=== PATIENT | female | born 1970 | race Caucasian/White ===

== ENCOUNTER 2018-02-22 00:20 | Emergency (ER) | payer OTHER | END 2018-02-22 03:30 | disposition home or self-care (01) | LOC: ERS 00:20 | DX: H43.811 Vitreous degeneration, right eye (principal); Z79.899 Other long term (current) drug therapy | CPT/HCPCS: 99283 ==

== ENCOUNTER 2018-06-24 09:46 | Emergency (ER) | payer OTHER ==
[2018-06-24 10:42] LABS: #Eosinphils 0.3 thou/uL (0.0-0.7); #Lymphocytes 0.8 thou/uL (1.20-3.40); #Monocytes 0.7 thou/uL (0.11-0.59); #Neutrophils 14.4 thou/uL (1.40-6.50); %Basophils 0.2 % (0.0-1.0); %Lymphocytes 4.9 % (21.0-51.0); %Neutrophils 88.8 % (42.0-75.0); Hemoglobin 16.3 g/dL (12.0-16.0); Mean Corpuscular HGB CONC 33.7 g/dL (32.0-36.0); Mean Corpuscular Hemoglobin 29.3 pg (27.0-31.0); Mean Corpuscular Volume 86.8 fL (78.0-98.0); Mean Platelet Volume 7.3 fL (7.4-10.4); Platelet Count 342 thou/uL (130-400); Red Blood Cell (RBC) Count 5.57 mill/uL (4.20-5.40); White Blood Cell (WBC) Count 16.2 thou/uL (4.8-10.8)
--- NOTE | 2018-06-24 10:53 | RAD ---
CHEST 1 VIEW: Date: 06/24/18 HISTORY: 48-year-old female with history of abdominal discomfort, with nausea and vomiting. Chest pain. COMPARISON: 10/23/16. FINDINGS: Heart size is within normal limits. The lungs are clear. There is a somewhat nodular focus over the l eft lower chest, which I favor to be a nipple shadow. IMPRESSION: 1. Nodular area overlying the left lower chest, evidence for nipple shadow. Consideration for a foll ow-up chest with nipple markers and arms raised overhead suggested to confirm that this is indeed a n ipple shadow and not a pulmonary nodule. 2. No pneumonia, edema, or other acute process. POS: [facility]
[2018-06-24 11:04] LABS: ALT (SGPT) 49 U/L (8-55); AST (SGOT) 31 U/L (5-34); Albumin 4.3 g/dL (3.5-5.0); Alkaline Phosphatase 126 U/L (40-150); Anion Gap 13 mmol/L (10-20); BUN (Urea Nitrogen) 18 mg/dL (7.0-18.7); Bilirubin, Total 0.7 mg/dL (0.2-1.2); Calc. Creatinine Clearance 0 mL/min (70-130); Calcium 9.9 mg/dL (7.8-10.44); Carbon Dioxide 23 mmol/L (22-29); Chloride 104 mmol/L (98-107); Estimated GFR-MDRD Greater than 90; Globulin 3.2 g/dL (2.4-3.5); Glucose 102 mg/dL (70-105); Lipase 115 U/L (8-78); Potassium 4.4 mmol/L (3.5-5.1); Protein, Total 7.5 g/dL (6.0-8.3); Sodium 136 mmol/L (136-145)
[2018-06-24] MEDS ORDERED: Ketorolac Tromethamine 30 MG/ML VIAL ONE (12:06)
[2018-06-24] MEDS ORDERED: Ondansetron PF 4 MG/2 ML Vial ONE (12:06)
[2018-06-24 12:38] LABS: Bilirubin Negative (Negative); Blood, Urine Negative (Negative); Clarity CLEAR (Clear); Glucose, Urine (Dipstick) Negative (Negative); Leukocyte Small (Negative); Nitrite Negative (Negative); Protein, Urine (Dipstick) Negative (Neg-Trace); Specific Gravity, Urine 1.027 (1.002-1.036); Urobilinogen 0.2 mg/dL (0.2-1.0); pH, Urine 5.5 (5.0-9.0)
[2018-06-24 12:44] LABS: Bacteria/HPF Rare-Few HPF (None Seen); Hyaline Casts/LPF 0-3 HYALINE CAST LPF (0-3 Hyaline); Pathc Cast-AUWi Flag 0.29 (0-2.49); RBC/HPF 0-3 HPF (0-3); Squamous Epithelial 0-3 HPF (0-3); WBC/HPF 0-3 HPF (0-3)
[2018-06-24 14:55] LABS: Pregnancy Test - Urine (BHCG) Negative (Negative); Pregu Control Background? CLEAR/WHITE (CLR/WHITE); Pregu Control Bar Appear? YES (CONTROL BAR); Specific Gravity 1.025 (1.002-1.036)
--- NOTE | 2018-06-25 12:28 | EKG ---
Test Reason : Blood Pressure : / mmHG Vent. Rate : 109 BPM Atrial Rate : 109 BPM P-R Int : 128 ms QRS Dur : 082 ms QT Int : 326 ms P-R-T Axes : 077 -54 080 degrees QTc Int : 439 ms Sinus tachycardia Left axis deviation Abnormal ECG Confirmed by ESTEE YANES MD ([id number]), film or videotape editor SHIRA MORA ([id number] on 06/25/2018 12:28:05 PM Referred By: Confirmed By:ESTEE YANES MD
== END 2018-06-24 13:48 | disposition home or self-care (01) ==
LOC: ERS 09:46
DX: K52.9 Noninfective gastroenteritis and colitis, unspecified (principal); E03.9 Hypothyroidism, unspecified; Z79.899 Other long term (current) drug therapy
CPT/HCPCS: 36415; 71045; 80053; 81003; 81015; 81025; 83690; 84484; 85025; 93005; 96361; 96374; 96375; J1885; J2405

== ENCOUNTER 2018-08-07 18:22 | Emergency (ER) | payer OTHER ==
[2018-08-07] MEDS ORDERED: Ketorolac Tromethamine 30 MG/ML VIAL ONE (19:07)
[2018-08-07] MEDS ORDERED: Acetaminophen 500 MG TAB ONE (19:07)
--- NOTE | 2018-08-07 20:03 | RAD ---
TWO VIEW CHEST: 08/07/18 COMPARISON: 06/24/18 INDICATION: Cough. Fever. FINDINGS: There is no consolidation, effusion or pneumothorax. No free air beneath the hemidiaphragms. Cardiac silhouette is normal in size. IMPRESSION: No focal consolidation. POS: [facility]
== END 2018-08-07 19:58 | disposition home or self-care (01) ==
LOC: SCSER 18:22
DX: J11.1 Influenza due to unidentified influenza virus with other respiratory manifestations (principal); E03.9 Hypothyroidism, unspecified; F32.9 Major depressive disorder, single episode, unspecified
CPT/HCPCS: 71046; J1885

== ENCOUNTER 2018-08-08 16:45 | Emergency (ER) | payer OTHER ==
[2018-08-08] MEDS ORDERED: Ketorolac Tromethamine 30 MG/ML VIAL ONE (17:38)
[2018-08-08 18:20] LABS: #Basophils 0.1 thou/uL (0.0-0.2); #Lymphocytes 1.3 thou/uL (1.20-3.40); #Monocytes 1.5 thou/uL (0.11-0.59); #Neutrophils 12.1 thou/uL (1.40-6.50); %Basophils 0.5 % (0.0-1.0); %Eosinophils 0.1 % (0.0-10.0); %Lymphocytes 8.8 % (21.0-51.0); %Monocytes 10.2 % (0.0-10.0); %Neutrophils 80.4 % (42.0-75.0); Hemoglobin 11.8 g/dL (12.0-16.0); Mean Corpuscular HGB CONC 32.1 g/dL (32.0-36.0); Mean Corpuscular Hemoglobin 28.3 pg (27.0-31.0); Mean Corpuscular Volume 88.3 fL (78.0-98.0); Mean Platelet Volume 7.3 fL (7.4-10.4); Platelet Count 294 thou/uL (130-400); Red Blood Cell (RBC) Count 4.18 mill/uL (4.20-5.40); White Blood Cell (WBC) Count 15.1 thou/uL (4.8-10.8)
[2018-08-08 18:33] LABS: BHCG - Serum Negative (NEGATIVE); Pregs Control Background? CLEAR/WHITE (CLR/WHITE); Pregs Control Bar Appear? YES (CONTROL BAR)
[2018-08-08 18:42] LABS: ALT (SGPT) 43 U/L (8-55); AST (SGOT) 23 U/L (5-34); Albumin 3.5 g/dL (3.5-5.0); Alkaline Phosphatase 167 U/L (40-150); Anion Gap 15 mmol/L (10-20); BUN (Urea Nitrogen) 8 mg/dL (7.0-18.7); Bilirubin, Total 0.5 mg/dL (0.2-1.2); Calc. Creatinine Clearance 0 mL/min (70-130); Calcium 8.5 mg/dL (7.8-10.44); Carbon Dioxide 22 mmol/L (22-29); Chloride 97 mmol/L (98-107); Estimated GFR-MDRD Greater than 90; Globulin 2.9 g/dL (2.4-3.5); Glucose 119 mg/dL (70-105); Potassium 3.6 mmol/L (3.5-5.1); Protein, Total 6.4 g/dL (6.0-8.3); Sodium 130 mmol/L (136-145)
[2018-08-08] MEDS ORDERED: Piperacillin/Tazobactam 4.5 GM VIAL ONE (18:52)
[2018-08-08 18:58] LABS: Bilirubin Negative (Negative); Blood, Urine Trace (Negative); Clarity CLEAR (Clear); Glucose, Urine (Dipstick) Negative (Negative); Leukocyte Small (Negative); Nitrite Negative (Negative); Protein, Urine (Dipstick) Trace mg/dL (Neg-Trace); Specific Gravity, Urine 1.006 (1.002-1.036); pH, Urine 6.5 (5.0-9.0)
[2018-08-08 19:01] LABS: Bacteria/HPF None Seen HPF (None Seen); Hyaline Casts/LPF 0-3 HYALINE CAST LPF (0-3 Hyaline); RBC/HPF 0-3 HPF (0-3); Squamous Epithelial 0-3 HPF (0-3)
--- NOTE | 2018-08-08 19:38 | RAD ---
TWO VIEW CHEST: 08/08/18 COMPARISON: Previous day. INDICATION: Cough. FINDINGS: There is no lobar consolidation, effusion or pneumothorax. Chest is similar to previous day. IMPRESSION: No focal consolidation. POS: [facility]
== END 2018-08-08 20:50 | disposition home or self-care (01) ==
LOC: ERS 16:45
DX: B34.9 Viral infection, unspecified (principal); F32.9 Major depressive disorder, single episode, unspecified; E03.9 Hypothyroidism, unspecified; Z79.899 Other long term (current) drug therapy
CPT/HCPCS: 36415; 71046; 80053; 81003; 81015; 83605; 84439; 84443; 84481; 84703; 85025; 85652; 87040; 87086; 87804; 96361; 96365; 96375; J1885; J2543

== ENCOUNTER 2018-08-09 21:13 | Emergency (ER) | payer OTHER ==
[2018-08-09] MEDS ORDERED: Ketorolac Tromethamine 30 MG/ML VIAL ONE (21:57)
[2018-08-09] MEDS ORDERED: Ondansetron PF 4 MG/2 ML Vial ONE (21:57)
[2018-08-09] MEDS ORDERED: Acetaminophen 500 MG TAB ONE (23:16)
== END 2018-08-09 23:40 | disposition home or self-care (01) ==
LOC: ERS 21:13
DX: R50.9 Fever, unspecified (principal); E03.9 Hypothyroidism, unspecified; F32.9 Major depressive disorder, single episode, unspecified; Z79.899 Other long term (current) drug therapy
CPT/HCPCS: 96361; 96374; 96375; J1885; J2405